=== PATIENT | female | born 1960 | race Caucasian/White ===

== ENCOUNTER 2021-02-07 08:38 | Emergency (ER) | payer MEDICARE, BC ==
[2021-02-07] MEDS ORDERED: Sodium Chloride 0.9% 10 ML Syringe FLUSH PRN (09:16)
--- NOTE | 2021-02-07 11:01 | CR ---
Chest: Frontal view of the chest was obtained. Comparison: No prior chest x-ray is available. Heart size and mediastinum are within normal limits. Lungs are clear with no acute parenchymal change. Prior cervical spine surgery is noted. Slight scoliosis is noted within the spine. Impression: 1. Incidental findings. Nothing acute is seen on PA chest x-ray. Diagnostic code #2
--- NOTE | 2021-02-07 11:29 | EDM.PDOC ---
ED HPI GENERAL MEDICAL PROBLEM - General Chief Complaint: General Stated Complaint: NAUSEA ABDOMINSL PAIN LEG PAIN Time Seen by Provider: 02/07/21 09:00 Source of Information: Reports: Patient History Limitations: Reports: No Limitations - History of Present Illness INITIAL COMMENTS - FREE TEXT/NARRATIVE: The patient presents with nausea, diarrhea, generalized weakness and low leg pain. She has a history of MS, POTS disease and colitis. She had MS for a few years. She was recently diagnosed with POTS disease a few months ago. She did get colitis from naprosyn in July. She is still being treated for that. She had low potassium for a few months. It was 2.8 the past couple of times she checked it. She has some cramping in her legs. This has been going on for a few weeks but the past couple of days it was worse. She has no fever, chills, cough, chest pain, shortness of breath, abdominal pain or vomiting. She has no blood in her stool. She has been taking immodium and it is not helping. Onset: Gradual Duration: Week(s): Location: Reports: Lower Extremity, Left, Lower Extremity, Right Quality: Reports: Other (Tightness) Severity: Moderate Improves with: Reports: None Worsens with: Reports: None Associated Symptoms: Reports: Nausea/Vomiting. Denies: Chest Pain, Cough, Fever/Chills, Headaches, Shortness of Breath Bilateral Leg Pain Score (Numeric/FACES): 5 - Related Data Allergies Allergy/AdvReac Type Severity Reaction Status Date / Time NSAIDS (Non-Steroidal Allergy Other Verified 02/07/21 09:09 Anti-Inflamma oxybutynin Allergy Disorientat Verified 02/07/21 09:09 ion Home Meds: Home Meds Baclofen 10 mg PO BID 02/08/18 [History] Baclofen 20 mg PO 1700 02/08/18 [History] Ascorbate Calcium [Calcium Ascorbate] 1,000 mg PO DAILY 02/07/21 [History] Ascorbate Calcium [Vitamin C] 500 mg PO DAILY 02/07/21 [History] Budesonide [Budesonide ER] 9 mg PO DAILY 02/07/21 [History] Cholecalciferol (Vitamin D3) [Vitamin D3] 1,000 unit PO BID 02/07/21 [History] Cyanocobalamin (Vitamin B12) [Vitamin B12] 1,000 mcg PO ASDIRECTED 02/07/21 [History] Fludrocortisone [Florinef] 0.2 mg PO DAILY 02/07/21 [History] Iron 65 mg PO ASDIRECTED 02/07/21 [History] L Acidophil/B Lactis/B Longum [Florajen Digest 15 B Cell Cap] 1 tab PO DAILY 02/07/21 [History] Midodrine 5 mg PO TID 02/07/21 [History] Ondansetron [Zofran ODT] 8 mg PO TID PRN 02/07/21 [History] Potassium Chloride 80 meq PO DAILY 02/07/21 [History] Sodium Chloride 1 gm PO TID 02/07/21 [History] Zinc 50 mg PO DAILY 02/07/21 [History] cephALEXin [Keflex] 500 mg PO BID #10 cap 02/07/21 [Rx] Past Medical History Gastrointestinal History: Reports: Other (See Below) Other Gastrointestinal History: cholitis Musculoskeletal History: Reports: Other (See Below) Other Musculoskeletal History: neck surgery Neurological History: Reports: MS, Other (See Below) Other Neuro History: Nix dx in sept Hematologic History: Reports: Other (See Below) Other Hematologic History: hypokalemia - Infectious Disease History Infectious Disease History: Reports: Chicken Pox - Past Surgical History HEENT Surgical History: Reports: Adenoidectomy, Oral Surgery, Tonsillectomy GI Surgical History: Reports: Appendectomy, Hernia, Inguinal Female Surgical History: Reports: Tubal Ligation Neurological Surgical History: Reports: C-Spine Social & Family History - Tobacco Use Tobacco Use Status *Q: Never Tobacco User - Caffeine Use Caffeine Use: Reports: Coffee - Recreational Drug Use Recreational Drug Use: No - Living Situation & Occupation Living situation: Reports: , with Spouse Occupation: Disabled ED ROS GENERAL - Review of Systems Review Of Systems: See Below Constitutional: Reports: Malaise, Weakness, Fatigue. Denies: Fever, Chills HEENT: Reports: No Symptoms Respiratory: Reports: No Symptoms Cardiovascular: Reports: No Symptoms Endocrine: Reports: No Symptoms GI/Abdominal: Reports: Diarrhea, Nausea. Denies: Abdominal Pain, Vomiting : Reports: No Symptoms Musculoskeletal: Reports: Other (leg cramping) ED EXAM, GENERAL - Physical Exam Exam: See Below Exam Limited By: No Limitations General Appearance: Alert, No Apparent Distress Ears: Normal External Exam Nose: Normal Inspection Head: Atraumatic, Normocephalic Neck: Normal Inspection Respiratory/Chest: No Respiratory Distress, Lungs Clear, Normal Breath Sounds Cardiovascular: Regular Rate, Rhythm, No Edema, No Murmur GI/Abdominal: Soft, Non-Tender, No Organomegaly, No Mass Back Exam: Normal Inspection Extremities: Normal Inspection Neurological: Alert, Oriented, No Motor/Sensory Deficits #1 Interpretation EKG Date: 02/07/21 Time: 09:26 Rhythm: NSR Rate (Beats/Min): 76 [place]: Normal P-Wave: Present QRS: Normal ST-T: Normal QT: Normal Course - Vital Signs Last Recorded V/S: Last Vital Signs Temp 98.5 F 02/07/21 09:00 Pulse 90 02/07/21 09:00 Resp 20 02/07/21 09:00 BP 102/74 02/07/21 09:00 Pulse Ox 100 02/07/21 09:00 - Orders/Labs/Meds Orders: Active Orders 24 hr Category Date Time Status Peripheral IV Care [RC] . DIRECTED Care 02/07/21 09:17 Active Sodium Chloride 0.9% [Saline Flush] Med 02/07/21 09:16 Active 10 ml FLUSH ASDIRECTED PRN Peripheral IV Insertion Adult [OM.PC] Stat Oth 02/07/21 09:17 Ordered Medication Orders Sodium Chloride (Sodium Chloride 0.9% 10 Ml Syringe) 10 ml FLUSH ASDIRECTED PRN PRN Reason: Keep Vein Open Last Admin: 02/07/21 10:11 Dose: 10 ml Documented by: CORNELIUS Labs: Laboratory Tests 02/07/21 02/07/21 02/07/21 Range/Units 09:45 10:05 10:16 WBC 4.32 (3.98-10.04) K/mm3 RBC 4.20 (3.98-5.22) M/mm3 Hgb 14.5 D (11.2-15.7) gm/dl Hct 42.9 (34.1-44.9) % MCV 102.1 H (79.4-94.8) fl MCH 34.5 H (25.6-32.2) pg MCHC 33.8 (32.2-35.5) g/dl RDW Std Deviation 49.4 H (36.4-46.3) fL Plt Count 153 L (182-369) K/mm3 MPV 9.5 (9.4-12.3) fl Neut % (Auto) 65.1 (34.0-71.1) % Lymph % (Auto) 20.6 (19.3-51.7) % [place] % (Auto) 12.5 (4.7-12.5) % Eos % (Auto) 1.6 (0.7-5.8) Baso % (Auto) 0.2 (0.1-1.2) % Neut # (Auto) 2.81 (1.56-6.13) K/mm3 Lymph # (Auto) 0.89 L (1.18-3.74) K/mm3 [place] # (Auto) 0.54 H (0.24-0.36) K/mm3 Eos # (Auto) 0.07 (0.04-0.36) K/mm3 Baso # (Auto) 0.01 (0.01-0.08) K/mm3 D-Dimer, Quantitative (0.19-0.50) mg/L Sodium (136-145) mEq/L Potassium (3.5-5.1) mEq/L Chloride (98-107) mEq/L Carbon Dioxide (21-32) mEq/L Anion Gap (5-15) BUN (7-18) mg/dL Creatinine (0.55-1.02) mg/dL Est Cr Clr Drug Dosing mL/min Estimated GFR (MDRD) (>60) mL/min BUN/Creatinine Ratio (14-18) Glucose (70-99) mg/dL Calcium (8.5-10.1) mg/dL Magnesium (1.8-2.4) mg/dL Total Bilirubin (0.2-1.0) mg/dL AST (15-37) U/L ALT (14-59) U/L Alkaline Phosphatase (46-116) U/L Troponin I < 0.017 (0.00-0.056) ng/mL C-Reactive Protein (<1.0) mg/dL NT-Pro-B Natriuret Pep (0-125) pg/mL Total Protein (6.4-8.2) g/dl Albumin (3.4-5.0) g/dl Globulin gm/dL Albumin/Globulin Ratio (1-2) TSH 3rd Generation (0.358-3.74) uIU/mL Urine Color Light yellow (Yellow) Urine Appearance Slt cloudy H (Clear) Urine pH 5.5 (5.0-8.0) Ur Specific [place] 1.020 (1.005-1.030) Urine Protein Negative (Negative) Urine Glucose (UA) Negative (Negative) Urine Ketones Negative (Negative) Urine Occult Blood Negative (Negative) Urine Nitrite Positive H (Negative) Urine Bilirubin Negative (Negative) Urine Urobilinogen 0.2 (0.2-1.0) Ur Leukocyte Esterase 1+ H (Negative) Urine RBC 0-5 (0-5) /hpf Urine WBC 20-30 H (0-5) /hpf Ur Squamous Epith Cells 0-5 (0-5) /hpf Urine Bacteria Many H (FEW) /hpf Urine Mucus Few (FEW) /hpf 02/07/21 02/07/21 02/07/21 Range/Units 10:16 10:16 10:16 WBC (3.98-10.04) K/mm3 RBC (3.98-5.22) M/mm3 Hgb (11.2-15.7) gm/dl Hct (34.1-44.9) % MCV (79.4-94.8) fl MCH (25.6-32.2) pg MCHC (32.2-35.5) g/dl RDW Std Deviation (36.4-46.3) fL Plt Count (182-369) K/mm3 MPV (9.4-12.3) fl Neut % (Auto) (34.0-71.1) % Lymph % (Auto) (19.3-51.7) % [place] % (Auto) (4.7-12.5) % Eos % (Auto) (0.7-5.8) Baso % (Auto) (0.1-1.2) % Neut # (Auto) (1.56-6.13) K/mm3 Lymph # (Auto) (1.18-3.74) K/mm3 [place] # (Auto) (0.24-0.36) K/mm3 Eos # (Auto) (0.04-0.36) K/mm3 Baso # (Auto) (0.01-0.08) K/mm3 D-Dimer, Quantitative 0.35 (0.19-0.50) mg/L Sodium 144 (136-145) mEq/L Potassium 3.2 L (3.5-5.1) mEq/L Chloride 105 (98-107) mEq/L Carbon Dioxide 32 (21-32) mEq/L Anion Gap 10.2 (5-15) BUN 13 (7-18) mg/dL Creatinine 0.8 (0.55-1.02) mg/dL Est Cr Clr Drug Dosing 79.59 mL/min Estimated GFR (MDRD) > 60 (>60) mL/min BUN/Creatinine Ratio 16.3 (14-18) Glucose 73 (70-99) mg/dL Calcium 8.8 (8.5-10.1) mg/dL Magnesium 2.1 (1.8-2.4) mg/dL Total Bilirubin 0.3 (0.2-1.0) mg/dL AST 13 L (15-37) U/L ALT 26 (14-59) U/L Alkaline Phosphatase 62 (46-116) U/L Troponin I (0.00-0.056) ng/mL C-Reactive Protein <0.2 (<1.0) mg/dL NT-Pro-B Natriuret Pep 93 (0-125) pg/mL Total Protein 6.9 (6.4-8.2) g/dl Albumin 3.9 (3.4-5.0) g/dl Globulin 3.0 gm/dL Albumin/Globulin Ratio 1.3 (1-2) TSH 3rd Generation 1.198 (0.358-3.74) uIU/mL Urine Color (Yellow) Urine Appearance (Clear) Urine pH (5.0-8.0) Ur Specific [place] (1.005-1.030) Urine Protein (Negative) Urine Glucose (UA) (Negative) Urine Ketones (Negative) Urine Occult Blood (Negative) Urine Nitrite (Negative) Urine Bilirubin (Negative) Urine Urobilinogen (0.2-1.0) Ur Leukocyte Esterase (Negative) Urine RBC (0-5) /hpf Urine WBC (0-5) /hpf Ur Squamous Epith Cells (0-5) /hpf Urine Bacteria (FEW) /hpf Urine Mucus (FEW) /hpf Meds: Medications Generic Name Dose Route Start Last Admin Trade Name Freq PRN Reason Stop Dose Admin Sodium Chloride 10 ml 02/07/21 09:16 02/07/21 10:11 Sodium Chloride 0.9% 10 Ml Syringe FLUSH 10 ml ASDIRECTED PRN Administration Keep Vein Open - Re-Assessments/Exams Free Text/Narrative Re-Assessment/Exam: 02/07/21 11:30 I ordered an IV saline lock, EKG, CXR, and labs. Her EKG shows a NSR within no acute changes. Her CXR shows incidental findings. Nothing is seen on PA chest x-ray. Her CBC is negative. Her D-dimer is negative. Her K is low at 3.2 but that is better then the 2.8. Her troponin is negative. Her CRP is negative. Her TSH is negative. Her UA shows a UTI. 02/07/21 12:05 I will get her on some keflex for 5 days. Departure - Departure Time of Disposition: 12:05 Disposition: Home, Self-Care 01 Condition: Good Clinical Impression: Hypokalemia, Colitis UTI (urinary tract infection) Qualifiers: Urinary tract infection type: acute cystitis Hematuria presence: without he maturia Qualified Code(s): N30.00 - Acute cystitis without hematuria - Discharge Information *PRESCRIPTION DRUG MONITORING PROGRAM REVIEWED*: Not Applicable *COPY OF PRESCRIPTION DRUG MONITORING REPORT IN PATIENT NATHALIA: Not Applicable Prescriptions: cephALEXin [Keflex] 500 mg PO BID #10 cap Referrals: Cachorro De Oliveira MD [Primary Care Provider] - 3 Days Forms: ED Department Discharge Additional Instructions: Keep taking your medications as prescribed. Take the keflex 2 times per day for 5 days. Try to get in to see Dr Ivory on . Please return if you are worse. Sepsis Event Note (ED) - Evaluation Sepsis Screening Result: No Definite Risk - Focused Exam Vital Signs: Vital Signs Temp Pulse Resp BP Pulse Ox 02/07/21 09:00 98.5 F 90 20 102/74 100 - My Orders Last 24 Hours: My Active Orders 02/07/21 09:16 Sodium Chloride 0.9% [Saline Flush] 10 ml FLUSH ASDIRECTED PRN 02/07/21 09:17 Peripheral IV Care [RC] . DIRECTED Peripheral IV Insertion Adult [OM.PC] Stat - Assessment/Plan Last 24 Hours: My Active Orders 02/07/21 09:16 Sodium Chloride 0.9% [Saline Flush] 10 ml FLUSH ASDIRECTED PRN 02/07/21 09:17 Peripheral IV Care [RC] . DIRECTED Peripheral IV Insertion Adult [OM.PC] Stat
== END 2021-02-07 12:34 | disposition home or self-care (01) ==
LOC: JD.ED 08:38
DX: N30.00 Acute cystitis without hematuria (principal); K52.9 Noninfective gastroenteritis and colitis, unspecified; E87.6 Hypokalemia; Z88.8 Allergy status to other drugs, medicaments and biological substances
CPT/HCPCS: 36415; 71045; 71045-26; 80053; 81001; 83735; 83880; 84443; 84484; 85025; 85379; 86140; 87086; 87088; 87186; 93005; 93010; 99284-25; 99285

== ENCOUNTER 2023-06-05 11:42 | Emergency (ER) | payer MEDICARE, BC ==
[2023-06-05 12:45] LABS: BASOPHILS PERCENT AUTO 0.2 % (0.0-1.0); HEMATOCRIT 39.3 % (37.0-47.0); LYMPHOCYTES ABSOLUTE AUTO 1.1 K/mm3 (1.0-4.8); LYMPHOCYTES PERCENT AUTO 26.5 % (24.0-44.0); MEAN CORPUSCULAR HEMOGLOBIN 33.9 pg (28.0-32.0); MEAN CORPUSCULAR HGB CONC 33.1 g/dl (32.0-36.0); MEAN CORPUSCULAR VOLUME 102.3 fl (83.0-99.0); MEAN PLATELET VOLUME 9.1 fl (9.4-12.3); MONOCYTES ABSOLUTE AUTO 0.3 K/mm3 (0.0-0.8); MONOCYTES PERCENT AUTO 7.2 % (0.0-8.0); NEUTROPHILS ABSOLUTE AUTO 2.6 K/mm3 (1.8-7.7); NEUTROPHILS PERCENT AUTO 65.1 % (41.0-71.0); PLATELET COUNT,PLT 192 K/mm3 (150-400); RED BLOOD CELL COUNT 3.84 M/mm3 (4.10-5.30); WHITE BLOOD CELL COUNT,WBC 4.04 K/mm3 (3.9-11.3)
[2023-06-05 13:26] LABS: A/G RATIO 1.4 (1-2); ALBUMIN 3.9 g/dl (3.4-5.0); ANION GAP 10.7 (5-15); BILIRUBIN TOTAL 0.3 mg/dL (0.2-1.0); BUN/CREATININE RATIO 22.5 (14-18); CALCIUM 9.1 mg/dL (8.5-10.1); CREATININE 0.8 mg/dL (0.55-1.02); EST CRCL DRUG DOSING (CG) 74.97 mL/min; MAGNESIUM 2.1 mg/dL (1.8-2.4); POTASSIUM,K 3.7 mEq/L (3.5-5.1); PROTEIN TOTAL,TP 6.6 g/dl (6.4-8.2); TSH 0.671 uIU/mL (0.358-3.74)
[2023-06-05 13:49] LABS: APPEARANCE,URINE CLEAR (Clear); BILIRUBIN,URINE NEGATIVE (Negative); COLOR,URINE YELLOW (Yellow); GLUCOSE,URINE NEGATIVE (Negative); KETONES,URINE TRACE (Negative); LEUKOCYTE ESTERASE,URINE NEGATIVE (Negative); NITRITE,URINE NEGATIVE (Negative); OCCULT BLOOD,URINE NEGATIVE (Negative); PH,URINE 5.5 (5.0-8.0); PROTEIN,URINE NEGATIVE (Negative); UROBILINOGEN,URINE 0.2 (0.2-1.0)
[2023-06-05 14:15] LABS: BACTERIA,URINE FEW /hpf (FEW); EPITHELIAL CELLS,URINE 0-5 /hpf (0-5); MUCUS,URINE FEW /hpf (FEW); RBC,URINE 0-5 /hpf (0-5); WBC,URINE 0-5 /hpf (0-5)
== END 2023-06-05 14:48 | disposition home or self-care (01) ==
LOC: JD.ED 11:42
DX: M62.81 Muscle weakness (generalized) (principal); R11.0 Nausea; R82.71 Bacteriuria; Z90.49 Acquired absence of other specified parts of digestive tract; Z79.899 Other long term (current) drug therapy; Z88.6 Allergy status to analgesic agent
CPT/HCPCS: 36415; 70450; 70450-26; 80053; 81001; 83735; 84443; 85025; 87086; 93005; 93010; 99283; 99285